=== PATIENT | female | born 1970 | race Caucasian/White ===

== ENCOUNTER 2017-04-29 16:47 | Emergency (ER) | payer BC ==
[~2017-04-29] VITALS: Ht 177.8 cm; Wt 69.7 kg
[~2017-04-29 16:47] MED LIST: CHN/1 PO; DULO60CA44 PO; OXYB10TA13 PO; QUET1TAB34 PO
[2017-04-29 17:01] VITALS: Ht 177.8 cm; Wt 69.7 kg
[2017-04-29] MEDS ORDERED: SODIUM CHLORIDE 0.9% 1000ML 1,000 ML IV STA (17:50)
[2017-04-29] MEDS ORDERED: KETOROLAC TROMETHAMINE 30 MG/ML VIAL IV STA (17:50)
--- NOTE | 2017-04-29 17:52 | EMERGENCY ROOM VISIT NOTE ---
History Report prepared by Rosemarie: Husam Kern Under the Supervision of: Dr. Kris Hoff M.D. First contact with patient: 17:37 Chief Complaint: WOUND INFECTION Stated Complaint: BUG BITE INFECTED Nursing Triage Summary: Pt reports bug bite to right upper arm about 8 days ago. Seen at an Acute Care, placed on Bactrim at that time. Seen at [place] ED the next day, it was worse. "they gave me an abx that I was allergic to an told me to take it anyway, but my Doctor told me not". Pt reports she is still on Bactrim. "it's not working". c/ o joint stiffness and pain, weakness and fatigue. was tested for Lymes- neg History of Present Illness The patient is a 47 year old female who presents to the Emergency Room with complaints of a worsening bug bite infection that started 8 days ago. She says that she was bit on her right upper arm, and ever since then, the infection has been moving down her arm. She was seen at Acute Care 3 days ago, and was put on Bactrim. She has been compliant with the Bactrim. The patient says that she was seen at the [place] ER, and was put on Clindamycin, even though she is allergic to it. She talked to her primary care physician earlier today, and was told to stop the Clindamycin. She denies any abdominal pain. The patient adds that she had an ultrasound of her arm, and nothing abnormal was found. Source of History: patient Onset: 8 days ago Position: arm (right) Quality: other (bug bite infection) Timing: worsening Associated Symptoms: No abdominal pain Note: No other associated symptoms noted. Review of Systems See HPI for pertinent positives & negatives. A total of 10 systems reviewed and were otherwise negative. Past Medical & Surgical Medical Problems: (1) Diabetes Family History Cancer Diabetes mellitus Gallbladder disease Heart disease Hypertension Kidney disease Social History Smoking Status: Current Every Day Smoker Alcohol Use: none Marital Status: in relationship Housing Status: lives with significant other Occupation Status: retired Current/Historical Medications Scheduled Cefdinir (Omnicef), 1 CAP PO BID Duloxetine Hcl (Cymbalta), 60 MG PO QAM Oxybutynin Chloride Er (Ditropan Xl), 10 MG PO QAM Quetiapine Fumarate (Seroquel), 200 MG PO QAM Quetiapine Fumarate (Seroquel), 300 MG PO QPM Allergies Coded Allergies: Morphine and Related (Unverified Allergy, Mild, DELIRIUM, 04/29/17) Amoxicillin (Verified Allergy, Unknown, HIVES, EDEMA, ITCHING, 04/29/17) Ampicillin (Verified Allergy, Unknown, HIVES, EDEMA, ITCHING, 04/29/17) Cefaclor (Verified Allergy, Unknown, HIVES, EDEMA, ITCHING, 04/29/17) Cephalexin (Verified Allergy, Unknown, HIVES, EDEMA, ITCHING, 04/29/17) Clindamycin (Verified Allergy, Unknown, HIVES, EDEMA, ITCHING, 04/29/17) Doxycycline (Unverified Allergy, Unknown, ., 04/29/17) Ondansetron (Unverified Allergy, Unknown, ., 04/29/17) Penicillins (Verified Allergy, Unknown, HIVES, EDEMA, ITCHING, 04/29/17) Tetracycline (Verified Allergy, Unknown, HIVES, EDEMA, ITCHING, 04/29/17) Morphine (Verified Adverse Reaction, Unknown, PSYCH COMPLICATIONS, 04/29/17) PT. STATES PSYCHOTIC FEATURES. SHE HAS HAD TO BE RESTRAINED IN THE PAST WHEN MORPHINE WAS GIVEN TO PATIENT. Physical Exam Vital Signs Date Time Temp Pulse Resp B/P (MAP) Pulse Ox O2 Delivery O2 Flow Rate FiO2 04/29/17 19:35 37.2 61 16 120/54 97 04/29/17 19:01 72 18 126/78 98 Room Air 04/29/17 18:27 66 04/29/17 18:14 98 Room Air 04/29/17 18:14 66 16 98/60 98 Room Air 04/29/17 17:01 37.3 75 18 101/66 96 Room Air Physical Exam GENERAL: Patient is a healthy-appearing well-nourished 47 year old female. HEAD: Normocephalic atraumatic EYES: Ocular movements intact pupils equal and react to light OROPHARYNX mucous membranes are moist no exudates present no erythema or edema present NECK: Supple no nuchal rigidity CHEST: Good equal expansion LUNGS: Clear and equal to auscultation CARDIAC: Normal S1 and S2 ABDOMEN: Soft nontender no guarding BACK: No CVA tenderness EXTREMITIES: Reddened area to right forearm 4 inches by 4 inches. NEURO: Patient is following commands and answering questions appropriately. Alert and oriented x3 Cranial Nerves 2-12 grossly intact Medical Decision & Procedures Laboratory Results 04/29/17 18:13 Red Blood Count 4.09, Mean Corpuscular Volume 92.7, Mean Corpuscular Hemoglobin 32.3, Mean Corpuscular Hemoglobin Concent 34.8, Mean Platelet Volume 10.2, Neutrophils (%) (Auto) 55.5, Lymphocytes (%) (Auto) 30.9, Monocytes (%) (Auto) 7.0, Eosinophils (%) (Auto) 5.7, Basophils (%) (Auto) 0.8, Neutrophils # (Auto) 4.05, Lymphocytes # (Auto) 2.26, Monocytes # (Auto) 0.51, Eosinophils # (Auto) 0.42, Basophils # (Auto) 0.06 04/29/17 18:13 Test 04/29/17 18:13 White Blood Count 7.31 K/uL (4.8-10.8) Red Blood Count 4.09 M/uL (4.2-5.4) Hemoglobin 13.2 g/dL (12.0-16.0) Hematocrit 37.9 % (37-47) Mean Corpuscular Volume 92.7 fL (80-100) Mean Corpuscular Hemoglobin 32.3 pg (25-34) Mean Corpuscular Hemoglobin Concent 34.8 g/dl (32-36) Platelet Count 179 K/uL (130-400) Mean Platelet Volume 10.2 fL (7.4-10.4) Neutrophils (%) (Auto) 55.5 % Lymphocytes (%) (Auto) 30.9 % Monocytes (%) (Auto) 7.0 % Eosinophils (%) (Auto) 5.7 % Basophils (%) (Auto) 0.8 % Neutrophils # (Auto) 4.05 K/uL (1.4-6.5) Lymphocytes # (Auto) 2.26 K/uL (1.2-3.4) Monocytes # (Auto) 0.51 K/uL (0.11-0.59) Eosinophils # (Auto) 0.42 K/uL (0-0.5) Basophils # (Auto) 0.06 K/uL (0-0.2) RDW Standard Deviation 45.6 fL (36.4-46.3) RDW Coefficient of Variation 13.4 % (11.5-14.5) Immature Granulocyte % (Auto) 0.1 % Immature Granulocyte # (Auto) 0.01 K/uL (0.00-0.02) Anion Gap 7.0 mmol/L (3-11) Est Creatinine Clear Calc Drug Dose 111.0 ml/min Estimated GFR () 120.5 Estimated GFR (Non- 103.9 BUN/Creatinine Ratio 17.6 (10-20) Calcium Level 10.6 mg/dl (8.5-10.1) Total Bilirubin 0.2 mg/dl (0.2-1) Direct Bilirubin < 0.1 mg/dl (0-0.2) Aspartate Amino Transf (AST/SGOT) 9 U/L (15-37) Alanine Aminotransferase (ALT/SGPT) 15 U/L (12-78) Alkaline Phosphatase 89 U/L (45-117) Total Protein 6.8 gm/dl (6.4-8.2) Albumin 3.4 gm/dl (3.4-5.0) Lyme Disease IgG Antibody NEG (NEG) Lyme Disease IgM Antibody NEG (NEG) Labs reviewed by ED physician. Medications Administered Medications (Trade) Dose Ordered Sig/Milena Route Start Time Stop Time Status Last Admin Dose Admin Sodium Chloride 1,000 ml @ 999 mls/hr Q1H1M STAT IV 04/29/17 17:50 04/29/17 18:50 DC 04/29/17 18:17 999 MLS/HR Ketorolac Tromethamine (Toradol Inj) 30 mg NOW STAT IV 04/29/17 17:50 04/29/17 17:52 DC 04/29/17 18:22 30 MG Ceftriaxone Sodium (Rocephin Inj) 2 gm NOW STAT IV 04/29/17 17:54 04/29/17 17:56 DC 04/29/17 18:21 2 GM ED Course 1746: Past medical records reviewed. The patient was evaluated in room C9. A complete history and physical examination was performed. 1750: Ordered Toradol Inj 30 mg IV, NSS 1000 ml @ 999 mls/hr IV. 175: Ordered Rocephin Inj 2 gm IV. 1903: Upon reexamination the patient is resting comfortably. I discussed results and treatment plan with the patient. She verbalizes agreement and understanding. The patient is ready for discharge. Medical Decision Differential diagnosis: Etiologies such as cellulitis, abscess, MRSA infection, DVT, necrotizing fasciitis, dermatitis, drug eruption, as well as others were entertained.. Medication Reconciliation: I attest that I have personally reviewed the patient' s current medication list Blood Pressure Screening: Patient was found to have normal blood pressure on screening and does not require follow up. This is a 47-year-old female who presents emergency department complaining of cellulitic area to the right forearm. The area does not involve either her shoulder or her elbow joint. I will note the patient is afebrile and also does not have an elevation in her white blood count cell count. A Lyme titer was taken however this was found to be negative. The patient has been on Bactrim so I will broaden her coverage by placing her on Rocephin as well as Omnicef. The patient was observed and in the emergency department and did not appear to have any reaction to the antibiotics. I feel she can be safely discharged home for follow-up with her primary care physician. Patient was in agreement with the treatment plan. Impression Primary Impression: Cellulitis Scribe Attestation The scribe's documentation has been prepared under my direction and personally reviewed by me in its entirety. I confirm that the note above accurately reflects all work, treatment, procedures, and medical decision making performed by me. Departure Information Dispostion Home / Self-Care Prescriptions Cefdinir (OMNICEF) 300 Mg Cap 1 CAP PO BID for 10 Days, #20 CAP Prov: Kris Hoff MD 04/29/17 Referrals Juliano Hylton D.O. (PCP) Forms HOME CARE DOCUMENTATION FORM, IMPORTANT VISIT INFORMATION, WORK / SCHOOL INSTRUCTIONS Patient Instructions Cellulitis - [facility], [facility] Additional Instructions Continue taking Bactrim, add Ominicef You have been examined and treated today on an emergency basis only. This is not a substitute for, or an effort to provide, complete comprehensive medical care. It is impossible to recognize and treat all injuries or illnesses in a single emergency department visit. It is therefore important that you follow up closely with Dr Hylton. Call as soon as possible for an appointment. Thank you for your time and consideration. I look forward to speaking with you again soon. Please don't hesitate to call us if you have any questions. Problem Qualifiers Primary Impression: Cellulitis Site of cellulitis: extremity Site of cellulitis of extremity: upper extremity Laterality: right Qualified Codes: L03.113 - Cellulitis of right upper limb
[2017-04-29] MEDS ORDERED: CEFTRIAXONE SOD INJ 1 GM ADDVIAL IV STA (17:54)
[2017-04-29 18:14] VITALS: O2SAT 98
[2017-04-29 18:32] LABS: BASO % 0.8 %; BASO ABS # 0.06 K/uL (0-0.2); COMPLETE YES; EOS % 5.7 %; HEMATOCRIT 37.9 % (37-47); IG% 0.1 %; LYMPH % 30.9 %; LYMPH ABS # 2.26 K/uL (1.2-3.4); MEAN CELL VOLUME 92.7 fL (80-100); MEAN CORPUSCULAR HEMOGLOBIN 32.3 pg (25-34); MEAN CORPUSCULAR HGB CONC 34.8 g/dl (32-36); MEAN PLATELET VOLUME 10.2 fL (7.4-10.4); NEUT % 55.5 %; PLATELET COUNT 179 K/uL (130-400); RED BLOOD COUNT 4.09 M/uL (4.2-5.4); WHITE BLOOD COUNT 7.31 K/uL (4.8-10.8)
[2017-04-29 18:53] LABS: ALT/SGPT 15 U/L (12-78); BLOOD UREA NITROGEN 12 mg/dl (7-18); BUN/CREATININE RATIO 17.6 (10-20); CALCIUM 10.6 mg/dl (8.5-10.1); CARBON DIOXIDE 24 mmol/L (21-32); CHLORIDE 107 mmol/L (98-107); CREATININE 0.67 mg/dl (0.60-1.20); GLUCOSE 92 mg/dl (70-99); SODIUM 138 mmol/L (136-145)
[2017-04-29 18:56] LABS: ALKALINE PHOSPHATASE 89 U/L (45-117); AST/SGOT 9 U/L (15-37)
[2017-04-29] MEDS ORDERED: CEFD300C2 PO (19:02)
[2017-04-29 19:35] VITALS: BP 120/54; PULSE 61; TEMP 37.2; O2SAT 97
[2017-04-29 20:02] LABS: LYME DISEASE AB IGG NEG (NEG); LYME DISEASE AB IGM NEG (NEG)
--- NOTE | 2017-04-30 11:45 | Pharmacy Progress Note ---
ED Pharmacist Progress Note Date of Service: Apr 30, 2017. Received call from [facility] pharmacy requesting clarification on cefdinir prescription with reported cephalosporin allergy. Informed that patient received ceftriaxone in ED, was observed, and did not appear to have a reaction. Informed that Dr. Hoff was aware of the potential allergy when the cefdinir was prescribed. Requested that the [facility] pharmacist auto club travel counselor the patient on the importance of monitoring for a severe allergy while on the cefdinir. [facility] pharmacist acknowledged understanding.
[2017-05-05 18:34] LABS: EHRLICHIA CHAFF IGG AB <1:64 (<1:64); EHRLICHIA CHAFF IGM AB <1:20 (<1:20)
== END 2017-04-29 19:39 | disposition home or self-care (01) ==
LOC: C.EDB 16:48 → C.EDC 19:39
DX: L03.113 Cellulitis of right upper limb (principal); E11.9 Type 2 diabetes mellitus without complications; F17.200 Nicotine dependence, unspecified, uncomplicated; Z83.3 Family history of diabetes mellitus; Z82.49 Family history of ischemic heart disease and other diseases of the circulatory system

== ENCOUNTER 2020-12-02 22:27 | Observation (INO) ==
--- NOTE | 2020-12-02 22:55 | Emergency Department Note ---
History of Present Illness General Chief complaint: Stroke/CVA Symptoms Stated complaint: HEADACHE-CAN'T FOCUS-BRAIN IN SLOW MONTION Time Seen by Provider: 12/02/20 22:32 History of Present Illness This 50-year-old presents to the ER complaining of difficulty speaking and word finding for the past 2 hours Location: Generalized Quality: Difficult to speak Severity: Moderate Duration: Tonight Timing: Started 2 hours ago Context: Patient was concerned and came in Modifying factors: better with nothing; worse with nothing Patient worked last night and only slept 2 hours today. She has been out and about visiting family. She does smoke. No prior stroke. No known family history of stroke. Patient states she has difficulty speaking and figure out what she wants to say. Patient states she stopped taking her Ritalin a week ago on her own. Blood sugar was 144. Patient denies chest pain, dyspnea, fever, chills, localized weakness, vision problems, balance problems. No history of similar symptoms in the past. Patient normally sleeps 6 to 8 hours a night. Kevin is present to help assist with the history. Home Medications Medication Instructions Recorded Confirmed Type aripiprazole 15 mg PO DAILY 12/02/20 12/02/20 History buspirone 10 mg PO BID 12/02/20 12/02/20 History metformin 250 mg PO BID 12/02/20 12/02/20 History methylphenidate HCl 20 mg PO DAILY 12/02/20 12/02/20 History mirabegron [Myrbetriq] 50 mg PO DAILY 12/02/20 12/02/20 History nicotine 7 mg TOPICAL DAILY 12/02/20 12/02/20 History nicotine (polacrilex) 2 mg PO Q12 PRN 12/02/20 12/02/20 History oxybutynin chloride 10 mg PO DAILY 12/02/20 12/02/20 History venlafaxine 150 mg PO BID 12/02/20 12/02/20 History Allergies Allergy/AdvReac Type Severity Reaction Status Date / Time morphine Allergy Mild DELIRIUM Unverified 12/02/20 23:00 amoxicillin Allergy Unknown HIVES, Verified 12/02/20 23:00 EDEMA, ITCHING ampicillin Allergy Unknown HIVES, Verified 12/02/20 23:00 EDEMA, ITCHING cefaclor Allergy Unknown HIVES, Verified 12/02/20 23:00 EDEMA, ITCHING cephalexin Allergy Unknown HIVES, Verified 12/02/20 23:00 EDEMA, ITCHING clindamycin Allergy Unknown HIVES, Verified 12/02/20 23:00 EDEMA, ITCHING doxycycline Allergy Unknown . Unverified 12/02/20 23:00 ondansetron Allergy Unknown . Unverified 12/02/20 23:00 Penicillins Allergy Unknown HIVES, Verified 12/02/20 23:00 EDEMA, ITCHING tetracycline Allergy Unknown HIVES, Verified 12/02/20 23:00 EDEMA, ITCHING Past Med/Surg History Medical History Diabetes Surgical History S/P gastric surgery Social History Smoking Status: Current every day smoker Feels Safe at Home: Yes Review of Systems A total of 10 systems reviewed and were otherwise negative Physical Exam Vital Signs Vital Signs - 24 hr 12/02/20 22:28 12/02/20 23:11 12/02/20 23:12 Temperature 36.6 C Temperature Source Temporal Artery Scan Pulse Rate 69 63 Pulse Rate [Right Finger] 72 Pulse Rate from SpO2 Sensor 65 Respiratory Rate 16 12 20 Blood Pressure 179/122 H 165/79 H Blood Pressure [Right Arm] 165/79 H Blood Pressure Mean 141 107 Blood Pressure Mean [Right Arm] 107 Blood Pressure Position Sitting Pulse Oximetry 99 98 100 Oxygen Delivery Method Room Air Room Air Sepsis Recent Fever Within 48 Hours No Sepsis New/Unexplained Change in Mental Status No Sepsis Action Taken by Nursing No Action Required 12/02/20 23:23 12/02/20 23:30 12/02/20 23:39 Temperature Temperature Source Pulse Rate 61 64 63 Pulse Rate [Right Finger] Pulse Rate from SpO2 Sensor 62 64 63 Respiratory Rate 13 15 12 Blood Pressure 133/86 Blood Pressure [Right Arm] Blood Pressure Mean 101 Blood Pressure Mean [Right Arm] Blood Pressure Position Pulse Oximetry 99 100 100 Oxygen Delivery Method Sepsis Recent Fever Within 48 Hours Sepsis New/Unexplained Change in Mental Status Sepsis Action Taken by Nursing 12/02/20 23:40 12/02/20 23:45 12/02/20 23:46 Temperature Temperature Source Pulse Rate 62 62 Pulse Rate [Right Finger] 62 Pulse Rate from SpO2 Sensor 63 61 Respiratory Rate 13 19 12 Blood Pressure 159/87 H Blood Pressure [Right Arm] 133/86 Blood Pressure Mean 111 Blood Pressure Mean [Right Arm] 101 Blood Pressure Position Pulse Oximetry 99 100 100 Oxygen Delivery Method Room Air Sepsis Recent Fever Within 48 Hours Sepsis New/Unexplained Change in Mental Status Sepsis Action Taken by Nursing 12/03/20 00:00 12/03/20 00:15 12/03/20 00:16 Temperature Temperature Source Pulse Rate 67 71 67 Pulse Rate [Right Finger] Pulse Rate from SpO2 Sensor 66 Respiratory Rate 12 17 12 Blood Pressure 139/92 163/112 H Blood Pressure [Right Arm] Blood Pressure Mean 107 129 Blood Pressure Mean [Right Arm] Blood Pressure Position Pulse Oximetry 98 Oxygen Delivery Method Sepsis Recent Fever Within 48 Hours Sepsis New/Unexplained Change in Mental Status Sepsis Action Taken by Nursing 12/03/20 00:30 12/03/20 00:31 12/03/20 01:25 Temperature Temperature Source Pulse Rate 65 65 Pulse Rate [Right Finger] 64 Pulse Rate from SpO2 Sensor Respiratory Rate 13 13 19 Blood Pressure 134/90 Blood Pressure [Right Arm] 145/92 H Blood Pressure Mean 104 Blood Pressure Mean [Right Arm] 109 Blood Pressure Position Pulse Oximetry 98 Oxygen Delivery Method Sepsis Recent Fever Within 48 Hours Sepsis New/Unexplained Change in Mental Status Sepsis Action Taken by Nursing 12/03/20 01:40 Temperature Temperature Source Pulse Rate 62 Pulse Rate [Right Finger] Pulse Rate from SpO2 Sensor Respiratory Rate 19 Blood Pressure 125/76 Blood Pressure [Right Arm] Blood Pressure Mean Blood Pressure Mean [Right Arm] Blood Pressure Position Pulse Oximetry 97 Oxygen Delivery Method Room Air Sepsis Recent Fever Within 48 Hours Sepsis New/Unexplained Change in Mental Status Sepsis Action Taken by Nursing VITALS: Vitals are noted on the nurse's note and reviewed by myself. Vital signs hypertensive. GENERAL: Pleasant female having difficulty speaking, in no acute distress, nondiaphoretic, well-developed well-nourished. SKIN: The skin was without rashes, erythema, edema, or bruising. There is no tenting of the skin. Capillary reflex less than 2 seconds. HEAD: Normocephalic atraumatic. EARS: External auditory canals clear, tympanic membranes pearly pollard without erythema or effusion bilaterally. EYES: Pupils equal round and reactive to light and accommodation. Conjunctivae without injection, sclerae without icterus. Extraocular movements intact. NOSE: Patent, turbinates without inflammation or discharge. No sinus tenderness. MOUTH: Mucous membranes moist. Pharynx without erythema or exudate. Uvula midline. Airway patent. Tongue does not deviate. NECK: Supple without nuchal rigidity. No lymphadenopathy. No thyromegaly. Cervical spine is nontender. No JVD. HEART: Regular rate and rhythm LUNGS: Clear to auscultation bilaterally without wheezes, rales or rhonchi. No retractions or accessory muscle use. ABDOMEN: Positive bowel sounds x 4. Normal tympanic percussion. Soft, nontender, without masses or organomegaly. Zamora sign negative. No guarding or rebound tenderness. No CVA tenderness MUSCULOSKELETAL: No muscle atrophy, erythema, or edema noted. NEURO: Patient was alert and oriented to person place and time. Normal sensation to light and sharp touch. No focal neurological deficits. Cranial nerves II through XII grossly intact. No prior drift. Cerebellar exam intact. Patient is able to speak but appears slow to answer questions. Course Administered Medications Discontinued Medications Aspirin (Aspirin 81 Mg Chew) 324 mg PO NOW ONE Stop: 12/03/20 01:12 Last Admin: 12/03/20 01:21 Dose: 324 mg Documented by: [id number] Diphenhydramine HCl (Diphenhydramine 50 Mg/Ml Vial) 50 mg IV NOW STA Stop: 12/02/20 23:19 Last Admin: 12/02/20 23:36 Dose: 50 mg Documented by: [id number] Magnesium Sulfate/Dextrose (Magnesium Sulfate / D5w) 1 gm in 100 mls @ 100 mls/hr IV NOW STA Stop: 12/03/20 00:18 Last Infusion: 12/03/20 00:40 Dose: 0 mls/hr Documented by: [id number] Admin: 12/02/20 23:36 Dose: 100 mls/hr Documented by: [id number] Acetaminophen (Ofirmev) 1,000 mg in 100 mls @ 400 mls/hr IV NOW STA Stop: 12/02/20 23:34 Last Infusion: 12/03/20 00:23 Dose: 0 mls/hr Documented by: [id number] Admin: 12/02/20 23:36 Dose: 400 mls/hr Documented by: [id number] Prochlorperazine (Compazine) 1 mls @ 1 mls/min IV ONE ONE Stop: 12/02/20 23:21 Last Admin: 12/02/20 23:36 Dose: 1 mls/min Documented by: [id number] Sodium Chloride (Nss 1000ml) 1,000 mls @ 999 mls/hr IV .Q1H1M ONE Stop: 12/03/20 00:20 Last Infusion: 12/03/20 00:40 Dose: 0 mls/hr Documented by: [id number] Admin: 12/02/20 23:36 Dose: 999 mls/hr Documented by: [id number] Ioversol (Optiray 320 125ml) 125 ml IV ONCE ONE Stop: 12/02/20 23:21 Last Admin: 12/02/20 23:20 Dose: 122 ml Documented by: [id number] Simethicone (Simethicone 40 Mg/0.6 Ml 30ml) 40 mg PO NOW ONE Stop: 12/02/20 23:43 Last Admin: 12/03/20 00:57 Dose: Not Given Documented by: [id number] Medical Decision Making Medical Records Attestation: I reviewed the patient's medical records. Home Medications Current Medication List: was personally reviewed by me Laboratory Data Attestation: I reviewed the patient's lab results. Result diagrams: 12/02/20 22:57 12/02/20 22:57 Lab Results 12/02/20 12/02/20 12/02/20 Range/Units 22:51 22:53 22:53 WBC (4.8-10.8) K/uL RBC (4.2-5.4) M/uL Hgb (12.0-16.0) g/dL Hct (37-47) % MCV (80-100) fL MCH (25-34) pg MCHC (32-36) g/dL RDW Std Deviation (36.4-46.3) fL RDW Coeff of Brigid (11.5-14.5) % Plt Count (130-400) K/uL MPV (7.4-10.4) fL Immature Gran % (Auto) % Neut % (Auto) % Lymph % (Auto) % [place] % (Auto) % Eos % (Auto) % Baso % (Auto) % Neut # (Auto) (1.4-6.5) K/uL Lymph # (Auto) (1.2-3.4) K/uL [place] # (Auto) (0.11-0.59) K/uL Eos # (Auto) (0-0.5) K/uL Baso # (Auto) (0-0.2) K/uL Immature Gran # (Auto) (0.00-0.02) K/uL ESR (0-21) mm/hr PT (9.0-12.0) Seconds INR (0.9-1.1) APTT (21.0-31.0) Seconds PTT Ratio Sodium (136-145) mmol/L Potassium (3.5-5.1) mmol/L Chloride (98-107) mmol/L Carbon Dioxide (21-32) mmol/L Anion Gap (3-11) BUN (7-18) mg/dl Creatinine (0.6-1.2) mg/dl Est Cr Clr Drug Dosing ml/min Est GFR ( Amer) Est GFR (Non-Af Amer) BUN/Creatinine Ratio (10-20) Glucose (70-99) mg/dl POC Glucose 150 H (70-99) mg/dl Calcium (8.5-10.1) mg/dl Magnesium (1.8-2.4) mg/dl Total Bilirubin (0.2-1) mg/dl AST (15-37) U/L ALT (12-78) U/L Alkaline Phosphatase (45-117) U/L Troponin I (0-0.045) ng/ml Total Protein (6.4-8.2) gm/dl Albumin (3.4-5.0) gm/dl Globulin (2.5-4.0) gm/dl Albumin/Globulin Ratio (0.9-2) HCG, Qual (Negative) Urine Color Yellow Urine Appearance Clear (Clear) Urine pH 6.0 (4.5-7.5) Ur Specific [place] 1.006 (1.000-1.030) Urine Protein Negative (Negative) Urine Glucose (UA) Negative (Negative) Urine Ketones Negative (Negative) Urine Blood Negative (Negative) Urine Nitrite Negative (Negative) Urine Bilirubin Negative (Negative) Urine Urobilinogen Negative (Negative) Ur Leukocyte Esterase Negative (Negative) Urine Opiates Screen Neg (Neg) Ur Methadone, Qual Neg (Neg) Urine Barbiturates Neg (Neg) Ur Phencyclidine (PCP) Neg (Neg) U Amphetamin/Meth Scrn Neg (Neg) MDMA (Ecstasy) Screen Neg (Neg) U Benzodiazepines Scrn Neg (Neg) Ur Cocaine Metabolite Neg (Neg) U Marijuana (THC) Screen Neg (Neg) Ethyl Alcohol mg/dL (0-3) mg/dl COVID-19 Eval Order SARS-CoV-2, RNA, NAAT (NEGATIVE) Blood Type Antibody Screen 12/02/20 12/02/20 12/02/20 Range/Units 22:57 22:57 22:57 WBC 12.14 H (4.8-10.8) K/uL RBC 4.52 (4.2-5.4) M/uL Hgb 15.0 (12.0-16.0) g/dL Hct 41.9 (37-47) % MCV 92.7 (80-100) fL MCH 33.2 (25-34) pg MCHC 35.8 (32-36) g/dL RDW Std Deviation 42.4 (36.4-46.3) fL RDW Coeff of Brigid 12.6 (11.5-14.5) % Plt Count 247 (130-400) K/uL MPV 10.1 (7.4-10.4) fL Immature Gran % (Auto) 0.4 % Neut % (Auto) 53.4 % Lymph % (Auto) 36.6 % [place] % (Auto) 5.4 % Eos % (Auto) 3.8 % Baso % (Auto) 0.4 % Neut # (Auto) 6.49 (1.4-6.5) K/uL Lymph # (Auto) 4.44 H (1.2-3.4) K/uL [place] # (Auto) 0.65 H (0.11-0.59) K/uL Eos # (Auto) 0.46 (0-0.5) K/uL Baso # (Auto) 0.05 (0-0.2) K/uL Immature Gran # (Auto) 0.05 H (0.00-0.02) K/uL ESR (0-21) mm/hr PT 9.9 (9.0-12.0) Seconds INR 1.0 (0.9-1.1) APTT 27.0 (21.0-31.0) Seconds PTT Ratio 1.0 Sodium (136-145) mmol/L Potassium (3.5-5.1) mmol/L Chloride (98-107) mmol/L Carbon Dioxide (21-32) mmol/L Anion Gap (3-11) BUN (7-18) mg/dl Creatinine (0.6-1.2) mg/dl Est Cr Clr Drug Dosing ml/min Est GFR ( Amer) Est GFR (Non-Af Amer) BUN/Creatinine Ratio (10-20) Glucose (70-99) mg/dl POC Glucose (70-99) mg/dl Calcium (8.5-10.1) mg/dl Magnesium (1.8-2.4) mg/dl Total Bilirubin (0.2-1) mg/dl AST (15-37) U/L ALT (12-78) U/L Alkaline Phosphatase (45-117) U/L Troponin I (0-0.045) ng/ml Total Protein (6.4-8.2) gm/dl Albumin (3.4-5.0) gm/dl Globulin (2.5-4.0) gm/dl Albumin/Globulin Ratio (0.9-2) HCG, Qual (Negative) Urine Color Urine Appearance (Clear) Urine pH (4.5-7.5) Ur Specific [place] (1.000-1.030) Urine Protein (Negative) Urine Glucose (UA) (Negative) Urine Ketones (Negative) Urine Blood (Negative) Urine Nitrite (Negative) Urine Bilirubin (Negative) Urine Urobilinogen (Negative) Ur Leukocyte Esterase (Negative) Urine Opiates Screen (Neg) Ur Methadone, Qual (Neg) Urine Barbiturates (Neg) Ur Phencyclidine (PCP) (Neg) U Amphetamin/Meth Scrn (Neg) MDMA (Ecstasy) Screen (Neg) U Benzodiazepines Scrn (Neg) Ur Cocaine Metabolite (Neg) U Marijuana (THC) Screen (Neg) Ethyl Alcohol mg/dL (0-3) mg/dl COVID-19 Eval Order SARS-CoV-2, RNA, NAAT (NEGATIVE) Blood Type O Positive Antibody Screen NEGATIVE 12/02/20 12/02/20 12/02/20 Range/Units 22:57 22:57 23:31 WBC (4.8-10.8) K/uL RBC (4.2-5.4) M/uL Hgb (12.0-16.0) g/dL Hct (37-47) % MCV (80-100) fL MCH (25-34) pg MCHC (32-36) g/dL RDW Std Deviation (36.4-46.3) fL RDW Coeff of Brigid (11.5-14.5) % Plt Count (130-400) K/uL MPV (7.4-10.4) fL Immature Gran % (Auto) % Neut % (Auto) % Lymph % (Auto) % [place] % (Auto) % Eos % (Auto) % Baso % (Auto) % Neut # (Auto) (1.4-6.5) K/uL Lymph # (Auto) (1.2-3.4) K/uL [place] # (Auto) (0.11-0.59) K/uL Eos # (Auto) (0-0.5) K/uL Baso # (Auto) (0-0.2) K/uL Immature Gran # (Auto) (0.00-0.02) K/uL ESR 17 (0-21) mm/hr PT (9.0-12.0) Seconds INR (0.9-1.1) APTT (21.0-31.0) Seconds PTT Ratio Sodium 141 (136-145) mmol/L Potassium 3.6 (3.5-5.1) mmol/L Chloride 106 (98-107) mmol/L Carbon Dioxide 27 (21-32) mmol/L Anion Gap 8.0 (3-11) BUN 10 (7-18) mg/dl Creatinine 0.77 (0.6-1.2) mg/dl Est Cr Clr Drug Dosing 105.0 ml/min Est GFR ( Amer) 103.6 Est GFR (Non-Af Amer) 89.4 BUN/Creatinine Ratio 12.8 (10-20) Glucose 138 H (70-99) mg/dl POC Glucose (70-99) mg/dl Calcium 8.8 (8.5-10.1) mg/dl Magnesium 2.3 (1.8-2.4) mg/dl Total Bilirubin 0.2 (0.2-1) mg/dl AST 8 L (15-37) U/L ALT 22 (12-78) U/L Alkaline Phosphatase 86 (45-117) U/L Troponin I < 0.015 (0-0.045) ng/ml Total Protein 7.8 (6.4-8.2) gm/dl Albumin 3.9 (3.4-5.0) gm/dl Globulin 3.9 (2.5-4.0) gm/dl Albumin/Globulin Ratio 1.0 (0.9-2) HCG, Qual (Negative) Urine Color Urine Appearance (Clear) Urine pH (4.5-7.5) Ur Specific [place] (1.000-1.030) Urine Protein (Negative) Urine Glucose (UA) (Negative) Urine Ketones (Negative) Urine Blood (Negative) Urine Nitrite (Negative) Urine Bilirubin (Negative) Urine Urobilinogen (Negative) Ur Leukocyte Esterase (Negative) Urine Opiates Screen (Neg) Ur Methadone, Qual (Neg) Urine Barbiturates (Neg) Ur Phencyclidine (PCP) (Neg) U Amphetamin/Meth Scrn (Neg) MDMA (Ecstasy) Screen (Neg) U Benzodiazepines Scrn (Neg) Ur Cocaine Metabolite (Neg) U Marijuana (THC) Screen (Neg) Ethyl Alcohol mg/dL < 3.0 (0-3) mg/dl COVID-19 Eval Order SARS-CoV-2, RNA, NAAT (NEGATIVE) Blood Type Antibody Screen 12/03/20 12/03/20 12/03/20 Range/Units 00:00 00:55 00:55 WBC (4.8-10.8) K/uL RBC (4.2-5.4) M/uL Hgb (12.0-16.0) g/dL Hct (37-47) % MCV (80-100) fL MCH (25-34) pg MCHC (32-36) g/dL RDW Std Deviation (36.4-46.3) fL RDW Coeff of Brigid (11.5-14.5) % Plt Count (130-400) K/uL MPV (7.4-10.4) fL Immature Gran % (Auto) % Neut % (Auto) % Lymph % (Auto) % [place] % (Auto) % Eos % (Auto) % Baso % (Auto) % Neut # (Auto) (1.4-6.5) K/uL Lymph # (Auto) (1.2-3.4) K/uL [place] # (Auto) (0.11-0.59) K/uL Eos # (Auto) (0-0.5) K/uL Baso # (Auto) (0-0.2) K/uL Immature Gran # (Auto) (0.00-0.02) K/uL ESR (0-21) mm/hr PT (9.0-12.0) Seconds INR (0.9-1.1) APTT (21.0-31.0) Seconds PTT Ratio Sodium (136-145) mmol/L Potassium (3.5-5.1) mmol/L Chloride (98-107) mmol/L Carbon Dioxide (21-32) mmol/L Anion Gap (3-11) BUN (7-18) mg/dl Creatinine (0.6-1.2) mg/dl Est Cr Clr Drug Dosing ml/min Est GFR ( Amer) Est GFR (Non-Af Amer) BUN/Creatinine Ratio (10-20) Glucose (70-99) mg/dl POC Glucose (70-99) mg/dl Calcium (8.5-10.1) mg/dl Magnesium (1.8-2.4) mg/dl Total Bilirubin (0.2-1) mg/dl AST (15-37) U/L ALT (12-78) U/L Alkaline Phosphatase (45-117) U/L Troponin I (0-0.045) ng/ml Total Protein (6.4-8.2) gm/dl Albumin (3.4-5.0) gm/dl Globulin (2.5-4.0) gm/dl Albumin/Globulin Ratio (0.9-2) HCG, Qual Negative (Negative) Urine Color Urine Appearance (Clear) Urine pH (4.5-7.5) Ur Specific [place] (1.000-1.030) Urine Protein (Negative) Urine Glucose (UA) (Negative) Urine Ketones (Negative) Urine Blood (Negative) Urine Nitrite (Negative) Urine Bilirubin (Negative) Urine Urobilinogen (Negative) Ur Leukocyte Esterase (Negative) Urine Opiates Screen (Neg) Ur Methadone, Qual (Neg) Urine Barbiturates (Neg) Ur Phencyclidine (PCP) (Neg) U Amphetamin/Meth Scrn (Neg) MDMA (Ecstasy) Screen (Neg) U Benzodiazepines Scrn (Neg) Ur Cocaine Metabolite (Neg) U Marijuana (THC) Screen (Neg) Ethyl Alcohol mg/dL (0-3) mg/dl COVID-19 Eval Order [facility] SARS-CoV-2, RNA, NAAT NEGATIVE (NEGATIVE) Blood Type Antibody Screen Imaging Data Attestation: I personally reviewed and interpreted this imaging study as follows: MDM Narrative Prior records/ancillary studies reviewed and summarized above. Nursing notes reviewed. Additional history obtained from [facility]. The patient's history was concerning for difficulty speaking. Differential diagnosis: Etiologies such as metabolic, infection, hypo/hyperglycemia, electrolyte abnormalities, cardiac sources, intracerebral event, toxicologic, neurologic, as well as others were entertained. Physical examination: As above. ER treatment provided: IV Lock An order was placed for continuous cardiac monitoring. The monitor shows a rate of 60-100 with a sinus rhythm. NIH 1 On reassessment the patient felt better. Diagnostics interpretation by me: ECG: Ordered for stroke symptoms EKG: Normal sinus, normal axis, no acute ST-T wave changes, rate of 58. Impression sinus bradycardia interpreted by myself I think arrhythmia is unlikely. EKG shows normal sinus rhythm with no interval abnormalities such as QT prolongation or WPW. There are no findings to suggest Brugada syndrome. Cardiac monitoring in the emergency department reveals no tachycardic or bradycardic dysrhythmia. Hypertrophic cardiomyopathy was considered but there are no clear historical elements pointing toward this. EKG is not suggestive. The QRS voltage is not extremely large and there are no suggestive Q waves. The labs revealed mild hyperglycemia that DKA. Negative troponin. Negative drug screen. Negative alcohol Mild leukocytosis Imaging studies: CTA HEAD: No evidence of large vessel occlusion. Radiologist: Loreta Tafoya M.D. Study ready at 23:14 and initial results transmitted at 23:31 CTA NECK: No evidence of high-grade stenosis or occlusion. Emphysematous changes with spiculated density in the right upper lobe. Additional nodule at the anterior left lung. Correlate with priors if available or consider additional workup/followup. Debris filled esophagus. Radiologist: Loreta Tafoya M.D. CT HEAD: No evidence of intracranial hemorrhage or acute cortical infarct. MRI is more sensitive for acute ischemia if indicated. Radiologist: Loreta Tafoya M.D. Chest x-ray with no acute consolidation, pneumothorax or free of mitral rotation Consultation: A consultation was placed with the telestroke neurologist, Dr. Carter from [facility] and he recommends MRI aspirin the patient passes swallow test and ESR. He states patient does not need TPA. Medicine was consulted, Dr. Mclean hospitalist. The case was discussed and diagnostics were reviewed. The patient was evaluated in the ER for further treatment. TPA was not given per recommendations of neurology and low NIH score. Exam and history seem consistent with dysarthria with concerns for possible CVA. Imaging was negative. Telestroke was immediately consulted. My attending was made aware immediately. NIH was 1. Patient was reassessed multiple times. She was able to speak in full sentences. She had no weakness on exam. Patient and family agreeable treatment plan of admission. By the evaluation outlined above emergent etiologies such as infection, electrolyte abnormalities, cardiac sources, abnormalities blood glucose, metabolic, as well as others were deemed relatively unlikely. The pt informed about the findings as listed above. All questions were answered and pleased with the treatment. The chart was completed utilizing [employer] Speech voice recognition software. Grammatical errors, random word insertions, pronoun errors, and incomplete sentences are an occassional consequence of this system due to software limitations, ambient noise, and hardware issues. Any formal questions or concerns about the content, text, or information contained within the body of this dictation should be directly addressed to the physician wet process miller head assistant for clarification. Impression & Plan Dysarthria Discharge Plan Visit Data Chief Complaint: Stroke/CVA Symptoms Stated Complaint: HEADACHE-CAN'T FOCUS-BRAIN IN SLOW MONTION ED Provider: Kris Hoff ED Midlevel Provider: Amelia Jones Discharge Problem: Dysarthria Patient Disposition: Admitted As Inpatient Condition: Good Discharge Instructions Interventions: ED Discharge Assessment Last Done: 12/03/20 01:40 Forms Stand Alone Forms: [email or web address] Prescriptions Prescriptions: No Action metformin 500 mg tablet 250 mg PO BID RF: 0 venlafaxine 75 mg tablet 150 mg PO BID RF: 0 oxybutynin chloride 10 mg tablet extended release 24hr 10 mg PO DAILY RF: 0 nicotine (polacrilex) 2 mg gum 2 mg PO Q12 PRN (Reason: cravings) RF: 0 buspirone 10 mg tablet 10 mg PO BID RF: 0 methylphenidate HCl 20 mg tablet extended release 20 mg PO DAILY RF: 0 nicotine 7 mg/24 hr patch 24 hour 7 mg topical DAILY RF: 0 aripiprazole 15 mg tablet 15 mg PO DAILY RF: 0 Myrbetriq 50 mg tablet extended release 24 hr 50 mg PO DAILY RF: 0 Referrals Referrals: Juliano Hylton [Primary Care Provider] -
[2020-12-02] MEDS ORDERED: diphenhydrAMINE 50 MG/ML VIAL IV STA (23:18)
[2020-12-02] MEDS ORDERED: MAGNESIUM SULFATE / D5W 1 GM/100 ML BAG IV STA (23:19)
[2020-12-02 23:20] LABS: Basophils # (auto) 0.05 K/uL (0-0.2); Basophils % (auto) 0.4 %; Eosinophils # (auto) 0.46 K/uL (0-0.5); Eosinophils % (auto) 3.8 %; Hematocrit (blood only) 41.9 % (37-47); Immature Granulocytes # (auto) 0.05 K/uL (0.00-0.02); Immature Granulocytes % (auto) 0.4 %; Lymphocytes # (auto) 4.44 K/uL (1.2-3.4); Lymphocytes % (auto) 36.6 %; Mean Corpuscular Hemoglobin 33.2 pg (25-34); Mean Corpuscular Hgb Conc 35.8 g/dL (32-36); Mean Corpuscular Volume 92.7 fL (80-100); Mean Platelet Volume 10.1 fL (7.4-10.4); Monocytes # (auto) 0.65 K/uL (0.11-0.59); Monocytes % (auto) 5.4 %; Neutrophils # (auto) 6.49 K/uL (1.4-6.5); Neutrophils % (auto) 53.4 %; Platelet Count 247 K/uL (130-400); RDW Coefficient of Variation 12.6 % (11.5-14.5); RDW Standard Deviation 42.4 fL (36.4-46.3); Red Blood Count 4.52 M/uL (4.2-5.4); White Blood Count 12.14 K/uL (4.8-10.8)
[2020-12-02] MEDS ORDERED: SODIUM CHLORIDE 0.9% 1000ML 1,000 ML IV ONE (23:20)
[2020-12-02] MEDS ORDERED: ACETAMINOPHEN 1,000 MG/100 ML VIAL IV STA (23:20)
[2020-12-02] MEDS ORDERED: OPTIRAY 320 125ml IV ONE (23:20)
[2020-12-02] MEDS ORDERED: PROCHLORPERAZINE 1 ML IV ONE (23:20)
[2020-12-02 23:30] LABS: Prothrombin Time 9.9 Seconds (9.0-12.0)
[2020-12-02 23:40] LABS: Alanine Aminotransferase 22 U/L (12-78); Albumin Level 3.9 gm/dl (3.4-5.0); Aspartate Aminotransferase 8 U/L (15-37); BUN Creatinine Ratio 12.8 (10-20); Blood Urea Nitrogen 10 mg/dl (7-18); Calcium 8.8 mg/dl (8.5-10.1); Carbon Dioxide 27 mmol/L (21-32); Chloride 106 mmol/L (98-107); Est GFR (African American) 103.6; Est GFR (Non-African American) 89.4; Glucose 138 mg/dl (70-99); Magnesium 2.3 mg/dl (1.8-2.4); Potassium 3.6 mmol/L (3.5-5.1); Sodium 141 mmol/L (136-145)
[2020-12-02 23:42] LABS: Amphetamines+Metham, Urine Neg (Neg); Barbiturates, Urine Neg (Neg); Benzodiazepine, Urine Neg (Neg); Cocaine, Urine Neg (Neg); MDMA (Ecstacy), Urine Neg (Neg); Methadone, Urine Neg (Neg); Opiate, Urine Neg (Neg); Phencyclidine, Urine Neg (Neg)
[2020-12-02] MEDS ORDERED: SIMETHICONE 40 MG/0.6 ML 30ML PO ONE (23:42)
[2020-12-02 23:45] LABS: Alkaline Phosphatase 86 U/L (45-117); Bilirubin,Total 0.2 mg/dl (0.2-1); Globulin 3.9 gm/dl (2.5-4.0); Total Protein 7.8 gm/dl (6.4-8.2); Troponin I < 0.015 ng/ml (0-0.045)
[2020-12-03 01:03] LABS: Appearance Urine Clear (Clear); Bilirubin Urine Negative (Negative); Blood Urine Negative (Negative); Color Urine Yellow; Glucose Urine UA Negative (Negative); Ketones Urine Negative (Negative); Leukocyte Esterase Urine Negative (Negative); Nitrite Urine Negative (Negative); Protein Urine Negative (Negative); Specific Gravity Urine 1.006 (1.000-1.030); Urobilinogen Urine Negative (Negative)
[2020-12-03] MEDS ORDERED: ASPIRIN 81 MG CHEW PO ONE (01:11)
--- NOTE | 2020-12-03 01:13 | History & Physical Report ---
Date of Service December 03, 2020 Assessment & Plan (1) Acute encephalopathy: 50-year-old female past medical history significant for DM 2, bipolar disorder admitted following telestroke consult for acute encephalopathy of unknown etiology and for continued CVA work-up. Acute encephalopathy/CVA rule out: - Presenting findings of dysarthria and memory difficulty. - Stroke alert called telestroke consult performed. - CT head, CTA head/neck without findings suggestive of acute infarct. - Lab work showed mildly elevated WBCs to 12.14, normal ESR, negative U tox, UA negative for signs of infection, COVID-19 negative, CXR without findings suggestive of pneumonia. - Symptoms are in the setting of several antipsychotic/antidepressant medications for bipolar disorder. She does not appear to have focal neurologic deficits on my exam. - Patient recently self discontinued her home Ritalin medication 1 week ago. - Suspect presentation is secondary to polypharmacy with several medications including antipsychotics, antidepressants, anticholinergics, and up until recently methamphetamines. - Neurology consult placed. Will hold home medications until evaluated by neurology in the morning. - Continue CVA work-up to include hemoglobin A1c, lipid panel, TTE in the morning. - Repeat CBC and BMP. - MRI with and without ordered for the morning. - Aspirin 325 x1 followed by 81 mg daily started at the suggestion of stroke Neurologist. - Patient requested as needed anxiety medication, as she feels that her jaw clenching is secondary to that. Unable to find any previous prescriptions for benzodiazepines in the PDMP. Will defer this class of medications regardless when she undergoes CVA rule-out work-up. Tylenol as needed for jaw pain. - Jaw pain unlikely to be secondary to claudication such as an temporal arteritis, as ESR is normal. Bipolar disorder: - History of, follows with [facility]. - Holding medications as above given acute encephalopathy. DM2: - Patient is on Metformin at home. - Hemoglobin A1c ordered with morning labs. - Hold Metformin, start sliding scale insulin while admitted. Titrate as needed. CODE STATUS: Full code FEN/GI: DM2 diet when patient is cleared for p.o. intake DVT prophylaxis: Hold chemoprophylaxis given acute CVA work-up, SCDs Dispo: medical floor with telemetry for CVA rule out (2) Diabetes: (3) Bipolar disorder: History of Present Illness Chief Complaint: Slurred speech, memory issues Primary Care Provider: Juliano Hylton 50-year-old female past medical history significant for DM 2, bipolar disorder presented to the ER with boyfriend for complaints of slurred speech, difficulty concentrating, confusion. History also provided by boyfriend who is in attendance during my interview. Patient got about 2 hours of sleep last night, normal sleep is 68 for her. This evening about 5 PM her boyfriend noted some difficulty with speech as well as some word finding issues, slow speech. Patient felt as if "her brain was molasses and everything was slower". No associated motor or sensory weakness. Some associated jaw clenching over the last day or so with bilateral jaw pain. No fevers or chills, no chest pain or shortness of breath, no abdominal pain, no nausea, no dizziness. Mild headache endorsed. Of note, patient had been previously on Ritalin for a reason that ne ither her nor her partner remember, but she self stopped this medication 1 week ago due to difficulty sleeping. Neither she nor her partner recall any other changes in her chronic medications. She follows with [facility] for her psychiatric care. In ER patient underwent code stroke alert evaluation with telestroke neurologist. Had CT head and CTA head/neck without findings of acute infarct. CXR without findings of pneumonia. UA without findings suggestive of infection. Mildly elevated WBC count, BSG to 150s. Allergies Allergy/AdvReac Type Severity Reaction Status Date / Time amoxicillin Allergy Intermediate HIVES, Verified 12/03/20 08:27 EDEMA, ITCHING ampicillin Allergy Intermediate HIVES, Verified 12/03/20 08:27 EDEMA, ITCHING cefaclor Allergy Intermediate HIVES, Verified 12/03/20 08:27 EDEMA, ITCHING cephalexin Allergy Intermediate HIVES, Verified 12/03/20 08:27 EDEMA, ITCHING clindamycin Allergy Intermediate HIVES, Verified 12/03/20 08:27 EDEMA, ITCHING Penicillins Allergy Intermediate HIVES, Verified 12/03/20 08:27 EDEMA, ITCHING tetracycline Allergy Intermediate HIVES, Verified 12/03/20 08:27 EDEMA, ITCHING doxycycline Allergy Unknown Unknown Unverified 12/03/20 08:27 ondansetron Allergy Unknown Unknown Unverified 12/03/20 08:27 morphine AdvReac Mild DELIRIUM Unverified 12/03/20 08:27 Home Medications Medication Instructions Recorded Confirmed Type Myrbetriq 50 mg PO DAILY 12/02/20 12/02/20 History aripiprazole 15 mg PO DAILY 12/02/20 12/02/20 History buspirone 10 mg PO BID 12/02/20 12/02/20 History metformin 250 mg PO BID 12/02/20 12/02/20 History methylphenidate HCl 20 mg PO DAILY 12/02/20 12/02/20 History nicotine 7 mg TOPICAL DAILY 12/02/20 12/02/20 History nicotine (polacrilex) 2 mg PO Q12 PRN 12/02/20 12/02/20 History oxybutynin chloride 10 mg PO DAILY 12/02/20 12/02/20 History venlafaxine 150 mg PO BID 12/02/20 12/02/20 History Past Med/Surg History Medical History (Updated 12/03/20 @ 12:28 by Melissa Blanco MD) Diabetes Surgical History (Updated 12/03/20 @ 12:28 by Melissa Blanco MD) S/P gastric surgery Social History Smoking Status: Current every day smoker Cigarettes Per Day: 5; Hx Alcohol Use: No Preferred Language: Trinidadian Communication Ability: Effective Manager Market Required: No Beliefs That Will Affect Care: None Current Living Situation: Significant Other Feels Safe at Home: Yes Assistive Devices: None Review of Systems Review of Systems: All systems reviewed & are unremarkable except as noted in HPI & below Constitutional: no fever, no chills and no malaise Respiratory: no cough and no dyspnea Cardiovascular: no chest pain, no palpitations and no edema Gastrointestinal: no abdominal pain, no constipation and no diarrhea/loose stools Genitourinary: no dysuria and no hematuria Physical Exam Constitutional: WD/WN, vitals as above Eyes: PERRL, conjunctivae normal, anicteric sclerae ENMT: external ear and nose normal, oropharynx normal Neck: normal visual inspection Respiratory: normal respiratory effort, lungs clear to auscultation Cardiovascular: RRR, no murmur, no edema Gastrointestinal (Abdomen): normal bowel sounds, soft, nontender, no hepatosplenomegaly Musculoskeletal: No cyanosis or clubbing Skin: no rashes, warm and dry Neurologic: AAOx3, slow speech without slurring. PERRLA, EOMI, no nystagmus. Bilateral UE, LE, and face without sensory or motor deficits/asymmetry. No pronator drift. No tremor. Psychiatric: Orientation: alert and oriented x 3 Affect: + flat affect and + blunted affect Results & Data Results & Data ([facility]) Vital Signs (Past 12 Hours) Vital Signs Temp Pulse Pulse Resp BP BP Pulse Ox 12/03/20 00:31 65 13 12/03/20 00:30 65 13 134/90 12/03/20 00:16 67 12 12/03/20 00:15 71 17 163/112 H 12/03/20 00:00 67 12 139/92 98 12/02/20 23:46 62 12 100 12/02/20 23:45 62 19 159/87 H 100 12/02/20 23:40 62 13 133/86 99 12/02/20 23:39 63 12 133/86 100 12/02/20 23:30 64 15 100 12/02/20 23:23 61 13 99 12/02/20 23:12 72 20 165/79 H 100 12/02/20 23:11 63 12 165/79 H 98 12/02/20 22:28 36.6 C 69 16 179/122 H 99 Supervising Physician Co-Signing Physician Notes Attending addendum: I have physically seen this patient, have supervised the medical residents activities, and agree with the H&P unless as otherwise noted. Assessment and Plan: Acute encephalopathy- The patient will be admitted to telemetry for serial cardiac enzymes, serial EKG's, cardiac rhythm monitoring and a 2-D echocardiogram with Dopplers. Status post stroke alert in the ED CT head without contrast negative CTA head/ neck negative Patient is continued on her usual psychiatric medications however did stop her Ritalin 1 week ago on her own. Unclear if patient took excessive doses of her current medications Order MRI brain Aspirin 81 mg daily Stroke without TPA protocol order set Consult PT/OT/speech therapy/neurology. Bipolar disorder- Hold all psychoactive medications at this time. Diabetes mellitus- Hold Metformin Check hemoglobin A1c Placed on Accu-Cheks before meals and at bedtime with NovoLog coverage per scale Remaining orders and notations as noted Resident Activity Tracking Resident Involvement: Resident Care Provided Care Provided: [facility]
[2020-12-03 01:24] LABS: Pregnancy Test, Serum Negative (Negative)
[2020-12-03] MEDS ORDERED: LORazepam 0.5 MG/1 ML VIAL IV STA (01:33)
[2020-12-03] MEDS ORDERED: LORazepam 2 MG/4 ML VIAL ONE (01:42)
[2020-12-03] MEDS ORDERED: GADOBUTROL 65ML VIAL IV ONE (02:51)
[2020-12-03] MEDS ORDERED: GLUCAGON FOR INJ 1 MG VIAL SQ PRN (03:01)
[2020-12-03] MEDS ORDERED: PHARMACIST DISCHARGE MED REC CONSULT PRN (03:01)
[2020-12-03] MEDS ORDERED: DEXTROSE 50% 50 ML SYRINGE IV PRN (03:01)
[2020-12-03] MEDS ORDERED: GLUCOSE 10 TABS/TUBE PO PRN (03:01)
[2020-12-03] MEDS ORDERED: GLUCOSE 40% GEL 15 GM TUBE PO PRN (03:01)
[2020-12-03] MEDS ORDERED: POLYETHYLENE (MIRALAX) 17 GM PACK PO PRN (03:01)
[2020-12-03] MEDS ORDERED: CARBOHYDRATES FOR HYPOGLYCEMIA PO PRN (03:01)
[2020-12-03] MEDS ORDERED: INFLUENZA VIRUS QUAD VACCINE 0.5 ML SYR IM ONE (03:09)
[2020-12-03] MEDS ORDERED: INFLUENZA ADMINISTRATION CHARGE ONE (03:09)
[2020-12-03] MEDS ORDERED: INSULIN ASPART 100 UNITS/ML 3 ML PEN SC SCH ×2 (06:00→07:30)
[2020-12-03] MEDS: ACETAMINOPHEN 325 MG TAB PO PRN ×3 (06:12→15:59)
[2020-12-03 06:14] LABS: Basophils # (auto) 0.05 K/uL (0-0.2); Basophils % (auto) 0.4 %; Eosinophils # (auto) 0.43 K/uL (0-0.5); Eosinophils % (auto) 3.8 %; Hematocrit (blood only) 39.9 % (37-47); Hemoglobin 13.7 g/dL (12.0-16.0); Immature Granulocytes # (auto) 0.02 K/uL (0.00-0.02); Immature Granulocytes % (auto) 0.2 %; Lymphocytes # (auto) 3.26 K/uL (1.2-3.4); Lymphocytes % (auto) 29.1 %; Mean Corpuscular Hemoglobin 32.3 pg (25-34); Mean Corpuscular Hgb Conc 34.3 g/dL (32-36); Mean Corpuscular Volume 94.1 fL (80-100); Mean Platelet Volume 10.4 fL (7.4-10.4); Monocytes # (auto) 1.01 K/uL (0.11-0.59); Neutrophils # (auto) 6.43 K/uL (1.4-6.5); Neutrophils % (auto) 57.5 %; Platelet Count 211 K/uL (130-400); RDW Coefficient of Variation 12.6 % (11.5-14.5); RDW Standard Deviation 43.2 fL (36.4-46.3); Red Blood Count 4.24 M/uL (4.2-5.4)
[2020-12-03 06:48] LABS: BUN Creatinine Ratio 11.5 (10-20); Calcium 8.2 mg/dl (8.5-10.1); Creatinine Clr Calc Pharmacy 112.4 ml/min; Est GFR (African American) 108.7; Est GFR (Non-African American) 93.8; Potassium 3.8 mmol/L (3.5-5.1)
[2020-12-03] MEDS ORDERED: Nursing to Pharmacy Communication SCH (07:00)
--- NOTE | 2020-12-03 07:18 | CT Scan Report ---
UNENHANCED CT OF THE BRAIN; CT ANGIOGRAM OF THE BRAIN; CT ANGIOGRAM OF THE NECK CLINICAL HISTORY: Strokelike symptoms. Slurred speech. Weakness. COMPARISON STUDY: No priors. TECHNIQUE: Unenhanced axial CT scan of the brain is performed. Subsequently, following the IV adminis tration of 122 of Optiray 320, CT angiogram of the head and neck was performed from the aortic arch t o the vertex. Images are reviewed in the axial, sagittal, and coronal planes. 3-D MIPS images are cre ated and assessed. IV contrast was administered without complication. All measurements were calculate d based on NASCET criteria. A dose lowering technique was utilized adhering to the principles of ALA RA. CT DOSE: 1288.93 mGy.cm FINDINGS: Brain parenchyma: The brain parenchyma is normal in appearance. There is no hemorrhage, mass effect, or evidence of acute territorial ischemia by CT criteria. There is no evidence of enhancing mass lesi on on the angiogram phase images. The ventricles, sulci, and cisterns are normal in configuration. Gr ay-white matter differentiation is preserved. No extra-axial fluid collection is seen. Thoracic aorta: Visualized portions of the thoracic aorta are normal in caliber. The aortic arch demo nstrates standard 3-vessel anatomy. Right carotid arterial system: The right common carotid artery is widely patent, as are the right int ernal and external carotid arteries. The distal internal carotid artery is tortuous. Left carotid arterial system: The left common carotid artery is widely patent, as are the left international logistics analyst al and external carotid arteries. Vertebral arteries: The vertebral arteries are widely patent and codominant. Subclavian arteries: Widely patent bilaterally. Intracranial vasculature: There is origin of the right posterior cerebral artery. The internal carotid arteries are patent at the skull base, as are the anterior and middle cerebral arteries bilat erally. The vertebrobasilar system and posterior cerebral arteries are widely patent. The vertebral a rteries are codominant. There is no aneurysm, high-grade stenosis, or focal vessel cut off seen throu ghout the intracranial circulation. Jugular veins: Patent bilaterally. Dural sinuses: Patent. Upper chest: Emphysematous change is noted. There is a 12 mm spiculated nodule identified in the righ t upper lobe on image #81. The esophagus appears patulous and is filled with fluid to the level of th e thoracic inlet. Soft tissues: The visualized pharyngeal soft tissues are normal in appearance noting angiographic pha se technique. The oropharyngeal airway appears widely patent. The salivary and thyroid glands are nor mal in appearance. No cervical lymphadenopathy is seen. Skeletal structures: The calvarium appears intact. The cervical spine is within normal limits. No lyt ic or blastic lesion is seen. Orbits: The bony orbits are intact. Orbital contents are normal as visualized. Sinuses and mastoids: The paranasal sinuses are clear. The mastoid air cells are well pneumatized. IMPRESSION: 1. There is no hemorrhage, mass effect, or evidence of acute territorial ischemia by CT criteria. 2. Unremarkable CT angiogram of the brain. 3. Unremarkable CT angiogram of the neck. 4. Emphysema. 5. There is a 12 mm spiculated nodule in the right upper lobe. This is morphologically concerning, an d a nonemergent chest CT is recommended for further assessment. ACT 112: Positive. There are findings on this exam that require communication between the performing entity and the patient following Patient Test Result Information Act ([place] Act 112) guidelines. Electronically signed by: Robert Ahumada M.D. 12/03/2020 7:17 AM
--- NOTE | 2020-12-03 07:26 | Magnetic Resonance Report ---
MRI OF THE BRAIN COMBO CLINICAL HISTORY: Transient ischemic attack. COMPARISON STUDY: CT of the brain dated 12/02/2020. TECHNIQUE: MRI of the brain was performed utilizing various T1 and T2-weighted sequences in the axial , sagittal, and coronal planes. Contrast-enhanced sequences were acquired following the administratio n of 10 cc of Gadavist. FINDINGS: Brain parenchyma: There is mild subcortical and periventricular microangiopathic disease. There is no hemorrhage or mass effect. There is no restricted diffusion to suggest acute ischemia. No enhancing mass lesion is identified on the postcontrast images. [place]-white matter differentiation is preserved. No extra-axial fluid collection is seen. The cerebellar tonsils are normal in configuration. Ventricles, sulci, and cisterns: Normal in configuration. Pituitary and sella: Unremarkable. Intracranial vasculature: Normal flow voids are maintained at the skull base. Orbits: The bony orbits are grossly intact. Orbital contents are normal in appearance. Sinuses and mastoids: Clear. Calvarium: Unremarkable. Cervical cord: Partially visualized cervical spinal cord is normal in morphology and signal intensity . IMPRESSION: No acute intracranial abnormality. ACT 112: Negative or not required by law. Electronically signed by: Robert Ahumada M.D. 12/03/2020 7:25 AM
[2020-12-03] MEDS: ASPIRIN 81 MG ECTAB PO SCH (07:50)
--- NOTE | 2020-12-03 08:07 | XRay Report ---
SINGLE VIEW CHEST CLINICAL HISTORY: Strokelike symptoms. FINDINGS: An AP, portable, upright chest radiograph is obtained. No prior studies are available for c omparison at the time of dictation. The cardiomediastinal silhouette is unremarkable. The lungs and pleural spaces are clear. No pneumothorax is seen. The bony thorax is grossly intact. IMPRESSION: No active disease in the chest. ACT 112: Negative or not required by law. Electronically signed by: Robert Ahumada M.D. 12/03/2020 8:06 AM
[2020-12-03] MEDS ORDERED: BUTALBITAL/ACETAMIN/CAFFEINE TAB PO ONE (08:45)
--- NOTE | 2020-12-03 09:10 | Electrocardiogram Report ---
Test Reason : Blood Pressure : / mmHG Vent. Rate : 058 BPM Atrial Rate : 058 BPM P-R Int : 166 ms QRS Dur : 082 ms QT Int : 404 ms P-R-T Axes : 051 045 060 degrees QTc Int : 396 ms Poor data quality, interpretation may be adversely affected Sinus bradycardia Otherwise normal ECG No previous ECGs available Confirmed by Jose Pearson ([id number]) on 12/03/2020 9:09:41 AM Referred By: REFERRED SELF Confirmed By:Jose Pearson
--- NOTE | 2020-12-03 12:30 | Neurology Consultation ---
Date of Consultation December 03, 2020 Assessment & Plan (1) Word finding difficulty: Rosie Perales is a 50 yo woman w/ PMH of diabetes s/p gastric bypass, bipolar disorder/anxiety/ADHD, tobacco abuse and urinary issues who p/t [facility] with acute onset of word finding difficulty after sleep deprivation. 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 # Word finding difficulty: - check B12 level (ordered) given h/o gastric bypass. Replete if <400. - no stroke seen on MRI brain; could represent TIA however, cluster of symptoms with BLE weakness, memory issues and word finding difficulty does not localize to any one territory (maybe basilar artery but would have expected her to lose consciousness and posterior circulation looks good on CTA). - encouraged smoking cessation, working with PCP on stroke prevention goals (LDL <70, A1c<7, BP <130/80). Could add low dose atorvastatin 20mg daily; defer ASA given h/o gastric bypass and not really meeting criteria for TIA. Thank you for this interesting consult. She is stable for discharge from a neurological standpoint. Plan of care discussed with primary team. Please call or text with questions. (2) Diabetes: (3) S/P gastric surgery: History of Present Illness Attending Physician: Elizabeth Villeda MD History of Present Illness Rosie Perales is a 50 yo woman w/ PMH of diabetes s/p gastric bypass, bipolar disorder/anxiety/ADHD, tobacco abuse and urinary issues who p/t [facility] with acute onset of word finding difficulty after sleep deprivation. 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 In the ED, she was afebrile, BP 179/122, heart rate 69, respiratory rate 16, satting 99% on room air. Labs notable for WBC 12.14, hemoglobin 15, platelets 247, electrolytes within normal, creatinine 0.77, glucose 138, UA no infection, UDS negative, INR 1, calcium/magnesium within normal, LFTs within normal, troponin negative, alcohol level negative, Covid negative. A1c is pending, LDL 105. Imaging independently reviewed. CT head shows no hemorrhage or hypodensity. CTA head and neck shows no LVO, high-grade stenosis or aneurysm. MRI brain shows no acute or chronic infarct, no microhemorrhages, minimal to mild SVID. She was incidentally noted to have a 12 mm spiculated nodule in the right upper lobe of her lung. On examination, she reports that she was in her normal state of health until yesterday right before the super bowl when she felt like she had weakness in BLEs, numbness/tingling in bilateral hands, memory issues and word finding difficulty. Symptoms started gradually and progressed over hours. She endorses having a mild headache last night that worsened this morning (treated, now feels better). Feels like only word finding difficulty is residual at this point. Does not take AC/AP at home. Denies recent illnesses or injuries. Did recently stop her ritalin but no other medication changes. Is actively still smoking. Allergies Allergy/AdvReac Type Severity Reaction Status Date / Time amoxicillin Allergy Intermediate HIVES, Verified 12/03/20 08:27 EDEMA, ITCHING ampicillin Allergy Intermediate HIVES, Verified 12/03/20 08:27 EDEMA, ITCHING cefaclor Allergy Intermediate HIVES, Verified 12/03/20 08:27 EDEMA, ITCHING cephalexin Allergy Intermediate HIVES, Verified 12/03/20 08:27 EDEMA, ITCHING clindamycin Allergy Intermediate HIVES, Verified 12/03/20 08:27 EDEMA, ITCHING Penicillins Allergy Intermediate HIVES, Verified 12/03/20 08:27 EDEMA, ITCHING tetracycline Allergy Intermediate HIVES, Verified 12/03/20 08:27 EDEMA, ITCHING doxycycline Allergy Unknown Unknown Unverified 12/03/20 08:27 ondansetron Allergy Unknown Unknown Unverified 12/03/20 08:27 morphine AdvReac Mild DELIRIUM Unverified 12/03/20 08:27 Home Medications Medication Instructions Recorded Confirmed Type aripiprazole 15 mg PO DAILY 12/02/20 12/02/20 History buspirone 10 mg PO BID 12/02/20 12/02/20 History metformin 250 mg PO BID 12/02/20 12/02/20 History methylphenidate HCl 20 mg PO DAILY 12/02/20 12/02/20 History mirabegron [Myrbetriq] 50 mg PO DAILY 12/02/20 12/02/20 History nicotine 7 mg TOPICAL DAILY 12/02/20 12/02/20 History nicotine (polacrilex) 2 mg PO Q12 PRN 12/02/20 12/02/20 History oxybutynin chloride 10 mg PO DAILY 12/02/20 12/02/20 History venlafaxine 150 mg PO BID 12/02/20 12/02/20 History Patient History Medical History (Updated 12/03/20 @ 12:28 by Melissa Blanco MD) Diabetes Surgical History (Updated 12/03/20 @ 12:28 by Melissa Blanco MD) S/P gastric surgery Social History Smoking Status: Current every day smoker Cigarettes Per Day: 5; Hx Alcohol Use: No Preferred Language: Romanian Communication Ability: Effective Credit Specialist Required: No Beliefs That Will Affect Care: None Current Living Situation: Significant Other Feels Safe at Home: Yes Assistive Devices: Glasses Review of Systems Review of Systems: 14 point review of systems completed and negative except as in HPI. Exam (Neuro) Physical Exam: General Exam: GEN: NAD, sitting in chair. HEENT: No conjunctival injection, no rhinorrhea. CV: RRR, no peripheral edema PULM: Nonlabored respirations on room air. Neuro Exam: MS: Awake and Alert. Oriented to person, place, and date. Speech fluent and ap propriate without dysarthria or paraphasic errors. Language intact including naming, comprehension, repetition. Cognition and memory grossly intact. Attention intact. No neglect. CN: Visual henry full. No extinction to double simultaneous stimuli. No optic disc edema on fundoscopic exam. PERRLA OU. EOMI without nystagmus. Facial sensation intact to LT. Facial muscles full and symmetric. Hearing intact to conversation. Uvula midline with symmetric palatal elevation. Shoulder shrug normal. Tongue midline. MOTOR: Normal bulk and tone. No pronator drift. BUE strength 5/5 at deltoids, biceps, triceps, wrist flexors and extensors, and hand grasp bilaterally. BLE strength 5/5 at iliopsoas, hamstrings, quadriceps, tibialis anterior, and gastrocnemius bilaterally. REFLEXES: 1+ at biceps, triceps, brachioradialis, 1+ patella and Achilles bilaterally. Flexor plantar responses bilaterally. SENSORY: Intact to LT without extinction to double simultaneous stimuli. Vibration and temperature intact throughout. COORDINATION: No dysmetria or ataxia on [id number] bilaterally. Normal Robyn bilaterally. GAIT: deferred given physical status Results & Data ([facility]) Vital Signs (Past 12 Hours) Vital Signs Temp Pulse Pulse Resp BP BP Pulse Ox 12/03/20 11:19 36.6 C 89 16 116/80 98 12/03/20 07:46 37.0 C 67 16 115/75 98 12/03/20 07:00 65 12/03/20 02:55 36.7 C 64 20 99/65 L 97 12/03/20 01:40 62 19 125/76 97 12/03/20 01:25 64 19 145/92 H 98 12/03/20 00:31 65 13 12/03/20 00:30 65 13 134/90 PG Care Time/CCT Total # of Minutes Spent Total Time Spent with Patient: Total time spent is greater than 50% in coordination of care (as documented) at patient's floor/unit and/or counseling patient: Coding Level of Care Code 66216 Inpt Consult Level 5 Diagnoses Word finding difficulty R47.89 Diabetes E11.9 S/P gastric surgery Z98.890
[2020-12-03] MEDS: BUTALBITAL/ACETAMIN/CAFFEINE TAB PO PRN (17:47)
[2020-12-03] MEDS: VENLAFAXINE HCL 50 MG TAB PO SCH (19:45)
[2020-12-03] MEDS: busPIRone 5 MG TAB PO SCH (19:45)
[2020-12-04] MEDS: BUTALBITAL/ACETAMIN/CAFFEINE TAB PO PRN (03:20)
[2020-12-04 05:48] LABS: Estimated Average Glucose 103 mg/dl; Hemoglobin A1C 5.2 % (4.5-5.6)
[2020-12-04 07:30] LABS: Basophils # (auto) 0.04 K/uL (0-0.2); Basophils % (auto) 0.4 %; Eosinophils # (auto) 0.46 K/uL (0-0.5); Eosinophils % (auto) 4.6 %; Hematocrit (blood only) 40.7 % (37-47); Hemoglobin 14.2 g/dL (12.0-16.0); Immature Granulocytes # (auto) 0.01 K/uL (0.00-0.02); Immature Granulocytes % (auto) 0.1 %; Lymphocytes # (auto) 3.43 K/uL (1.2-3.4); Lymphocytes % (auto) 34.1 %; Mean Corpuscular Hemoglobin 32.7 pg (25-34); Mean Corpuscular Hgb Conc 34.9 g/dL (32-36); Mean Corpuscular Volume 93.8 fL (80-100); Mean Platelet Volume 10.4 fL (7.4-10.4); Monocytes # (auto) 0.96 K/uL (0.11-0.59); Monocytes % (auto) 9.6 %; Neutrophils # (auto) 5.15 K/uL (1.4-6.5); Neutrophils % (auto) 51.2 %; Platelet Count 228 K/uL (130-400); RDW Coefficient of Variation 12.5 % (11.5-14.5); RDW Standard Deviation 43.2 fL (36.4-46.3); Red Blood Count 4.34 M/uL (4.2-5.4); White Blood Count 10.05 K/uL (4.8-10.8)
--- NOTE | 2020-12-04 07:32 | Discharge Summary ---
Date of Service December 04, 2020 Admission HPI Per Admitting Provider 50-year-old female past medical history significant for DM 2, bipolar disorder presented to the ER with boyfriend for complaints of slurred speech, difficulty concentrating, confusion. History also provided by boyfriend who is in attendance during my interview. Patient got about 2 hours of sleep last night, normal sleep is 68 for her. This evening about 5 PM her boyfriend noted some difficulty with speech as well as some word finding issues, slow speech. Patient felt as if "her brain was molasses and everything was slower". No associated motor or sensory weakness. Some associated jaw clenching over the last day or so with bilateral jaw pain. No fevers or chills, no chest pain or shortness of breath, no abdominal pain, no nausea, no dizziness. Mild headache endorsed. Of note, patient had been previously on Ritalin for a reason that neither her nor her partner remember, but she self stopped this medication 1 week ago due to difficulty sleeping. Neither she nor her partner recall any other changes in her chronic medications. [facility]. In ER patient underwent code stroke alert evaluation with telestroke neurologist. Had CT head and CTA head/neck without findings of acute infarct. CXR without findings of pneumonia. UA without findings suggestive of infection. Mildly elevated WBC count, BSG to 150s. Principal Diagnosis word finding difficulty Discharge Exam Constitutional well developed and well nourished; no acute distress Eyes PERRL, conjunctivae normal, anicteric sclerae ENMT Mouth: oral mucous membranes not dry Respiratory normal respiratory effort; no respiratory distress and no labored breathing Auscultation: lungs clear to auscultation bilaterally; no crackles, no rales, no rhonchi and no wheezes Cardiovascular Rate/Rhythm: regular rate and regular rhythm Heart Sounds: no murmur and no cardiac rub Vessels: normal peripheral pulses and radial pulses present; no JVD Extremities: no edema Gastrointestinal (Abdomen) Inspection/Auscultation: abdomen normal to inspection and normal bowel sounds; abdomen not distended Percussion/Palpation: abdomen soft; abdomen nontender, no guarding, abdomen not rigid and no hepatosplenomegaly Musculoskeletal Head/Neck/Chest: normocephalic and head atraumatic Spine: no cervical spinal tenderness, no cervical muscular tenderness, no thoracic spinal tenderness and no lumbar spinal tenderness Skin no rashes, warm and dry Neurologic CN's II-XI intact bilaterally and moves all extremities Motor/Sensory: no tremor and no sensory deficit Psychiatric Orientation: alert, oriented to person, oriented to place and oriented to time Apperance: appropriately groomed; not disheveled Affect: euthymic affect; no anxious affect and no tearful affect Genitourinary no CVA tenderness Discharge Data Allergies Allergy/AdvReac Type Severity Reaction Status Date / Time amoxicillin Allergy Intermediate HIVES, Verified 12/03/20 08:27 EDEMA, ITCHING ampicillin Allergy Intermediate HIVES, Verified 12/03/20 08:27 EDEMA, ITCHING cefaclor Allergy Intermediate HIVES, Verified 12/03/20 08:27 EDEMA, ITCHING cephalexin Allergy Intermediate HIVES, Verified 12/03/20 08:27 EDEMA, ITCHING clindamycin Allergy Intermediate HIVES, Verified 12/03/20 08:27 EDEMA, ITCHING Penicillins Allergy Intermediate HIVES, Verified 12/03/20 08:27 EDEMA, ITCHING tetracycline Allergy Intermediate HIVES, Verified 12/03/20 08:27 EDEMA, ITCHING doxycycline Allergy Unknown Unknown Unverified 12/03/20 08:27 ondansetron Allergy Unknown Unknown Unverified 12/03/20 08:27 morphine AdvReac Mild DELIRIUM Unverified 12/03/20 08:27 Consultations 12/03/20 00:16 ED Decision to Admit Stat 12/03/20 01:11 Consult Neurology Routine 12/03/20 03:01 Consult Case Management - Discharge Planning Routine Ordered Studies 12/02/20 22:46 CT angio head w con Urgent CT angio neck with con Urgent CT head/brain wo con Urgent 12/03/20 00:39 MR brain wo/w con Urgent Hospital Course (1) Acute encephalopathy: Patient presented with word finding difficulty and feeling generally slow to respond 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 and has not slept well Also she stopped taking ritalin one week ago to help her sleep when not working Her symptoms are likely related to these changes MRI and Head CT negative for acute process B12 normal TSH normal neurology consultation was obtained and did not recommend aspirin, stating that this was not a TIA follow up with PCP for discussion on starting lipid lowering agent 2-9 patient feels back to normal, no recurrence of her symptoms (2) S/P gastric surgery: B12 level normal (3) Bipolar disorder: cont home regimen Total Time Total Time Spent Total Time Spent (In Minutes): 40 Total Time Includes: Examination of the Patient, Discharge Planning, Medication Reconciliation and Communication With Other Providers Discharge Plan Discharge Items Patient Disposition: Home - Self-Care Reason For Visit: ENCEPHALOPATHY Discharge Diagnosis: sleep deprivation word finding difficulties Condition on Discharge: Good Activity: Resume your previous activity Non-emergency contact: Primary Care Provider Call non-emergency contact if: you have any medication questions Follow-up/Referrals: Juliano Hylton [Primary Care Provider] - 12/10/20 10:00 am (You have an appt on 12/10 @ 10. Please arrive 15 minutes prior to your appt. It is important that you keep this appt, if for any reason this appt does not fit your schedule, please call [phone] to reschedule. ) Diet: Regular Addtl Attending Provider Instructions: You were treated for headache and word finding difficulty which is likely related to your new work schedule and sleep deprivation You had normal brain tissue on cat scan and MRI, indicating that no stroke has occurred Discuss with your primary care doctor whether or not you would like to start a cholesterol lowering medication (statin) Pending Studies at Discharge: No Stand-Alone Forms: My [facility] [employer], Smoking Cessation Medications and DC Order Prescriptions: Continued metformin 500 mg tablet 250 mg PO BID RF: 0 venlafaxine 75 mg tablet 150 mg PO BID RF: 0 oxybutynin chloride 10 mg tablet extended release 24hr 10 mg PO DAILY RF: 0 nicotine (polacrilex) 2 mg gum 2 mg PO Q12 PRN (Reason: cravings) RF: 0 buspirone 10 mg tablet 10 mg PO BID RF: 0 methylphenidate HCl 20 mg tablet extended release 20 mg PO DAILY RF: 0 nicotine 7 mg/24 hr patch 24 hour 7 mg topical DAILY RF: 0 aripiprazole 15 mg tablet 15 mg PO DAILY RF: 0 Myrbetriq 50 mg tablet extended release 24 hr 50 mg PO DAILY RF: 0 Discharge Orders: Discharge Order (Routine); Ordered 12/04/20 Ordered By: Elizabeth Villeda Admission Data Admit Date/Time: 12/03/20 01:11 Attending Provider: Elizabeth Villeda Admit Provider: Sayra Jules Primary Care Provider: Juliano Hylton Other Providers: Minh Amanda ; Shayan Wells Coding Level of Care Code D/C Day Management >30 mins Diagnoses Acute encephalopathy G93.40 S/P gastric surgery Z98.890 Bipolar disorder F31.9
[2020-12-04] MEDS: busPIRone 5 MG TAB PO SCH (07:47)
[2020-12-04] MEDS: ASPIRIN 81 MG ECTAB PO SCH (07:47)
[2020-12-04] MEDS: VENLAFAXINE HCL 50 MG TAB PO SCH (07:47)
[2020-12-04 07:54] LABS: BUN Creatinine Ratio 16.6 (10-20); Calcium 8.3 mg/dl (8.5-10.1); Creatinine Clr Calc Pharmacy 129.2 ml/min; Est GFR (African American) 119.1; Est GFR (Non-African American) 102.8; Magnesium 2.5 mg/dl (1.8-2.4); Phosphorus 3.8 mg/dl (2.5-4.9); Potassium 4.1 mmol/L (3.5-5.1)
[2020-12-04] MEDS ORDERED: STROKE PATIENT DISCHARGE STA (13:15)
--- NOTE | 2020-12-10 22:36 | Billing Data ---
Date of Service December 10, 2020 Coding Level of Care Code 12567 OBS Care - Level 3
== END 2020-12-04 16:30 | disposition home or self-care (01) ==
LOC: ED 22:27 → 2N 22:27 → SUATTDRO 12-03 01:11 → 2N 12-03 01:40